=== PATIENT | male | born 1985 | race Caucasian/White ===

== ENCOUNTER 2019-08-17 09:37 | Emergency (ER) | payer OTHER ==
[2019-08-17] MEDS ORDERED: IBUPROFEN 200 MG TAB PO ONE ×2 (10:47→10:50)
--- NOTE | 2019-08-17 11:16 | RAD REPORT ---
EXAM DESCRIPTION: RAD - Ankle Right 3 View - 08/17/2019 11:03 am CLINICAL HISTORY: Right ankle pain FINDINGS: No fracture or dislocation is seen. Soft tissue swelling. No bony abnormality seen
--- NOTE | 2019-08-17 11:16 | ER ---
Nurse's Notes [facility] Name: Roberto Carlos Moya Age: 33 yrs Sex: Male : 1985 Arrival Date: 08/17/2019 Time: 09:43 Bed 17 Private MD: Diagnosis: Sprain of ankle Presentation: 08/17 09:55 Presenting complaint: Patient states: R ankle pain after tripping on stairs yesterday. ss bruising and swelling noted to affected area. Transition of care: patient was not received from another setting of care. Onset of symptoms was August 16, 2019. Risk Assessment: Do you want to hurt yourself or someone else? Patient reports no desire to harm self or others. Initial Sepsis Screen: Does the patient meet any 2 criteria? No. Patient's initial sepsis screen is negative. Does the patient have a suspected source of infection? No. Patient's initial sepsis screen is negative. Care prior to arrival: None. 09:55 Method Of Arrival: Ambulatory ss 09:55 Acuity: ARJUN 4 ss Historical: - Allergies: 10:33 No Known Allergies; ss - Home Meds: 10:33 None [Active]; ss - PMHx: 10:33 None; ss - PSHx: 10:33 None; ss - Immunization history:: Adult Immunizations unknown. - Social history:: Smoking status: Patient uses tobacco products, smokes one-half pack cigarettes per day. - Family history:: not pertinent. - Ebola Screening: : Patient denies exposure to infectious person Patient denies travel to an Ebola-affected area in the 21 days before illness onset. Screenin:21 Abuse screen: Denies threats or abuse. Abuse screen: Denies injuries from another. aj1 Nutritional screening: No deficits noted. Tuberculosis screening: No symptoms or risk factors identified. 11:31 Fall Risk Fall in past 12 months (25 points). No secondary diagnosis (0 pts). No IV (0 aj1 pts). Ambulatory Aid- None/Bed Rest/Nurse Assist (0 pts). Gait- Impaired (20 pts.). Mental Status- Oriented to own ability (0 pts). Total Hussein Fall Scale indicates High Risk Score (45 or more points). Fall prevention measures have been instituted. Assessment: 10:21 General: Appears in no apparent distress. comfortable. General: Behavior is calm, aj1 cooperative, appropriate for age. Pain:. Pain: Complains of pain in right ankle Pain currently is 6 out of 10 on a pain scale. Aggravated by repositioning, weight bearing. Neuro: Level of Consciousness is awake, alert, obeys commands. Cardiovascular: Patient's skin is warm and dry. Respiratory: Airway is patent Respiratory effort is even, unlabored, Respiratory pattern is regular, symmetrical. GI: No signs and/or symptoms were reported involving the gastrointestinal system. : No signs and/or symptoms were reported regarding the genitourinary system. EENT: No signs and/or symptoms were reported regarding the EENT system. Derm: Bruising that is bright red, dark purple, on right ankle. Musculoskeletal: Range of motion: limited in right ankle Swelling present in right ankle. 10:52 Reassessment: X-Ray at bedside. aj1 11:32 Reassessment: Patient appears in no apparent distress at this time. No changes from aj1 previously documented assessment. Patient and/or family updated on plan of care and expected duration. Pain level reassessed. Patient is alert, oriented x 3, equal unlabored respirations, skin warm/dry/pink. Vital Signs: 10:33 BP 136 / 102; Pulse 78; Resp 16; Temp 98.4(TE); Pulse Ox 100% on R/A; Weight 72.57 kg; ss Height 5 ft. 7 in. (170.18 cm); Pain 4/10; 11:33 BP 130 / 100; Pulse 72; Resp 16; Pulse Ox 100% on R/A; aj1 10:33 Body Mass Index 25.06 (72.57 kg, 170.18 cm) ED Course: 09:43 Patient arrived in ED. am2 10:16 Paul Dempsey MD is Attending Physician. ronal 10:19 Nathaly Schwartz, RN is Primary Nurse. aj1 10:21 Patient has correct armband on for positive identification. Bed in low position. Call aj1 light in reach. 10:21 No provider procedures requiring assistance completed. aj1 10:33 Triage completed. ss 10:33 Arm band placed on right wrist. 11:03 Ankle Right 3 View XRAY In Process Unspecified. EDMS 11:15 Krystian Pedroza MD is Referral Physician. ronal 11:31 Patient did not have IV access during this emergency room visit. aj1 11:32 walking boot applied to right ankle. aj1 Administered Medications: 10:52 Drug: Motrin 600 mg Route: PO; aj1 11:34 Follow up: Response: No adverse reaction; Pain is decreased aj1 Outcome: 11:15 Discharge ordered by MD. villeda 11:33 Discharged to home ambulatory. aj1 11:33 Condition: good 11:33 Discharge instructions given to patient, Instructed on discharge instructions, follow up and referral plans. no drinking with medication, no driving heavy equipment, medication usage, Demonstrated understanding of instructions, follow-up care, medications, Prescriptions given X 2. 11:35 Patient left the ED. aj1 Signatures: Dispatcher [employer] EDNathaly Bo RN RN aj1 Paul Dempsey MD MD cha Smirch, Shelby, RN RN ss Moreno, Amanda am2
--- NOTE | 2019-08-17 11:16 | EDPHYS ---
Physician Documentation [facility] Name: Roberto Carlos Moya Age: 33 yrs Sex: Male : 1985 Arrival Date: 08/17/2019 Time: 09:43 Bed 17 Private MD: ED Physician Paul Dempsey HPI: 08/17 10:30 This 33 yrs old Male presents to ER via Unassigned with complaints of Ankle ronal Injury. 10:30 The patient presents with decreased range of motion, pain, swelling, tenderness. The ronal complaints affect the right ankle, right ankle and anterior aspect of right ankle. Onset: The symptoms/episode began/occurred 1 day(s) ago. Context: The problem was sustained. Associated signs and symptoms: The patient has no apparent associated signs or symptoms. Historical: - Allergies: 10:33 No Known Allergies; ss - Home Meds: 10:33 None [Active]; ss - PMHx: 10:33 None; ss - PSHx: 10:33 None; ss - Immunization history:: Adult Immunizations unknown. - Social history:: Smoking status: Patient uses tobacco products, smokes one-half pack cigarettes per day. - Family history:: not pertinent. - Ebola Screening: : Patient denies exposure to infectious person Patient denies travel to an Ebola-affected area in the 21 days before illness onset. ROS: 10:30 Constitutional: Negative for fever, chills, and weight loss, Eyes: Negative for injury, ronal pain, redness, and discharge, ENT: Negative for injury, pain, and discharge, Neck: Negative for injury, pain, and swelling, Cardiovascular: Negative for chest pain, palpitations, and edema, Respiratory: Negative for shortness of breath, cough, wheezing, and pleuritic chest pain, Abdomen/GI: Negative for abdominal pain, nausea, vomiting, diarrhea, and constipation, Back: Negative for injury and pain, : Negative for injury, bleeding, discharge, and swelling, Skin: Negative for injury, rash, and discoloration, Neuro: Negative for headache, weakness, numbness, tingling, and seizure, Psych: Negative for depression, anxiety, suicide ideation, homicidal ideation, and hallucinations, Allergy/Immunology: Negative for hives, rash, and allergies, Endocrine: Negative for neck swelling, polydipsia, polyuria, polyphagia, and marked weight changes, Hematologic/Lymphatic: Negative for swollen nodes, abnormal bleeding, and unusual bruising. 10:30 MS/extremity: Positive for decreased range of motion, pain, swelling, tenderness. Exam: 10:30 Constitutional: This is a well developed, well nourished patient who is awake, alert, ronal and in no acute distress. Head/Face: Normocephalic, atraumatic. Eyes: Pupils equal round and reactive to light, extra-ocular motions intact. Lids and lashes normal. Conjunctiva and sclera are non-icteric and not injected. Cornea within normal limits. Periorbital areas with no swelling, redness, or edema. ENT: Nares patent. No nasal discharge, no septal abnormalities noted. Tympanic membranes are normal and external auditory canals are clear. Oropharynx with no redness, swelling, or masses, exudates, or evidence of obstruction, uvula midline. Mucous membranes moist. Neck: Trachea midline, no thyromegaly or masses palpated, and no cervical lymphadenopathy. Supple, full range of motion without nuchal rigidity, or vertebral point tenderness. No Meningismus. Chest/axilla: Normal chest wall appearance and motion. Nontender with no deformity. No lesions are appreciated. Cardiovascular: Regular rate and rhythm with a normal S1 and S2. No gallops, murmurs, or rubs. Normal PMI, no JVD. No pulse deficits. Respiratory: Lungs have equal breath sounds bilaterally, clear to auscultation and percussion. No rales, rhonchi or wheezes noted. No increased work of breathing, no retractions or nasal flaring. Abdomen/GI: Soft, non-tender, with normal bowel sounds. No distension or tympany. No guarding or rebound. No evidence of tenderness throughout. Back: No spinal tenderness. No costovertebral tenderness. Full range of motion. Male : Normal genitalia with no discharge or lesions. Skin: Warm, dry with normal turgor. Normal color with no rashes, no lesions, and no evidence of cellulitis. Neuro: Awake and alert, GCS 15, oriented to person, place, time, and situation. Cranial nerves II-XII grossly intact. Motor strength 5/5 in all extremities. Sensory grossly intact. Cerebellar exam normal. Normal gait. Psych: Awake, alert, with orientation to person, place and time. Behavior, mood, and affect are within normal limits. 10:30 Musculoskeletal/extremity: Extremities: noted in the right ankle and anterior aspect of right ankle: decreased ROM, pain, swelling, tenderness, DVT Exam: negative Homans' sign noted on exam, no appreciated bluish discoloration, no erythema, no increased warmth, pain, swelling, tenderness. Vital Signs: 10:33 BP 136 / 102; Pulse 78; Resp 16; Temp 98.4(TE); Pulse Ox 100% on R/A; Weight 72.57 kg; ss Height 5 ft. 7 in. (170.18 cm); Pain 4/10; 11:33 BP 130 / 100; Pulse 72; Resp 16; Pulse Ox 100% on R/A; aj1 10:33 Body Mass Index 25.06 (72.57 kg, 170.18 cm) ss MDM: 10:16 Patient medically screened. [facility] 10:30 Data reviewed: vital signs, nurses notes, radiologic studies, plain films. [facility] 08/17 10:30 Order name: Ankle Right 3 View XRAY [facility] 08/17 10:30 Order name: Walking boot; Complete Time: 11:35 [facility] 08/17 10:30 Order name: Ice pack; Complete Time: 10:52 [facility] Administered Medications: 10:52 Drug: Motrin 600 mg Route: PO; [facility] 11:34 Follow up: Response: No adverse reaction; Pain is decreased aj1 Disposition: 08/17/19 11:15 Discharged to Home. Impression: Sprain of ankle. - Condition is Stable. - Discharge Instructions: Ankle Sprain. - Prescriptions for Ibuprofen 600 mg Oral Tablet - take 1 tablet by ORAL route every 6 hours As needed take with food; 20 tablet. Tylenol- Codeine #3 300-30 mg Oral Tablet - take 2 tablets by ORAL route every 6 hours As needed; 24 tablet. - Medication Reconciliation Form, Thank You Letter, Antibiotic Education, Prescription Opioid Use form. - Follow up: Private Physician; When: 2 - 3 days; Reason: Recheck today's complaints, Continuance of care, Re-evaluation by your physician. Follow up: Krystian Pedroza MD; When: 2 - 3 days; Reason: Recheck today's complaints, Continuance of care, Re-evaluation by your physician. - Problem is new. - Symptoms have improved. Signatures: Dispatcher [employer] EDNY Nathaly Schwartz RN RN aj1 Paul Dempsey MD MD cha Smirch, Shelby, RN RN ss Corrections: (The following items were deleted from the chart) 11:15 11:15 08/17/2019 11:15 Discharged to Home. Impression: Sprain of ankle. Condition is ronal Stable. Discharge Instructions: Ankle Sprain. Prescriptions for Ibuprofen 600 mg Oral Tablet - take 1 tablet by ORAL route every 6 hours As needed take with food; 20 tablet, Tylenol-Codeine #3 300-30 mg Oral Tablet - take 2 tablets by ORAL route every 6 hours As needed; 24 tablet. and Forms are Medication Reconciliation Form, Thank You Letter, Antibiotic Education, Prescription Opioid Use. Follow up: Private Physician; When: 2 - 3 days; Reason: Recheck today's complaints, Continuance of care, Re-evaluation by your physician. Problem is new. Symptoms have improved. [facility] 11:35 11:15 08/17/2019 11:15 Discharged to Home. Impression: Sprain of ankle. Condition is aj1 Stable. Discharge Instructions: Ankle Sprain. Prescriptions for Ibuprofen 600 mg Oral Tablet - take 1 tablet by ORAL route every 6 hours As needed take with food; 20 tablet, Tylenol-Codeine #3 300-30 mg Oral Tablet - take 2 tablets by ORAL route every 6 hours As needed; 24 tablet. and Forms are Medication Reconciliation Form, Thank You Letter, Antibiotic Education, Prescription Opioid Use. Follow up: Private Physician; When: 2 - 3 days; Reason: Recheck today's complaints, Continuance of care, Re-evaluation by your physician. Follow up: Krystian Pedroza; When: 2 - 3 days; Reason: Recheck today's complaints, Continuance of care, Re-evaluation by your physician. Problem is new. Symptoms have improved. ronal
[2019-08-17 11:45] VITALS: TEMP 98.4; O2SAT 100
[2019-08-17 11:46] VITALS: BP 130/100
== END 2019-08-17 11:35 | disposition home or self-care (01) ==
LOC: ER 09:37
DX: S93.401A Sprain of unspecified ligament of right ankle, initial encounter (principal); W01.0XXA Fall on same level from slipping, tripping and stumbling without subsequent striking against object, initial encounter; Y93.89 Activity, other specified; Y92.9 Unspecified place or not applicable; F17.210 Nicotine dependence, cigarettes, uncomplicated
CPT/HCPCS: 99284